=== PATIENT | female | born 1990 | race African-American/Black ===

== ENCOUNTER 2016-08-04 10:30 | Inpatient (IN) ==
[~2016-08-04 10:30] MED LIST: AMPICILLIN INJ 2,000 MG in SODIUM CHLORIDE 0.9% 100 ML IV ONE
[2016-08-04] MEDS ORDERED: AMPICILLIN 2,000 MG VIAL ONE (10:35)
[2016-08-04] MEDS ORDERED: SODIUM CHLORIDE 0.9% 100 ML IV ONE (10:36)
[2016-08-04] MEDS ORDERED: ONDANSETRON 4 MG/2 ML VIAL IV PRN (10:40)
[2016-08-04] MEDS: LACTATED RINGERS 1,000 ML IV SCH ×2 (10:58→13:42)
[2016-08-04 11:00] LABS: Basophils % 0.1 % (0.0-0.8); Eosinophils # 0.1 10*3/uL (0.0-0.87); Eosinophils % 0.6 % (0.00-10.9); Hematocrit 38.8 VOL% (35.7-47.0); Hemoglobin 12.4 GM/DL (12.0-16.0); Immature Granulocytes % 0.3 %; Immature Granulocytes Absolute 0.02 #; Lymphocytes # 1.9 10*3/uL (1.4-4.0); Lymphocytes % 24.3 % (21.3-54.2); Mean Corpuscular Hemoglobin 27 PG (27-34); Mean Corpuscular Volume 84.3 FL (87-102); Mean Platelet Volume 11.8 FL (9.6-12.0); Monocytes # 0.5 10*3/uL (0.11-0.8); Monocytes % 5.6 % (1.7-12.7); Neutrophils # 5.5 10*3/uL (1.4-7.4); Neutrophils % 69.1 % (38.7-73.9); Platelet Count 221 T/CUMM (130-400); Red Cell Distribution Width 13.8 % (9.3-17.3)
[2016-08-04] MEDS ORDERED: OXYTOCIN/LR 20 UNIT/1,000 ML BAG IV SCH (11:00)
[2016-08-04] MEDS: AMPICILLIN INJ 1,000 MG in SODIUM CHLORIDE 0.9% 100 ML IV SCH ×2 (11:01→16:02)
[2016-08-04 11:10] LABS: PT Patient Result 10.1 SECS; Partial Thromboplastin Time 30.8 SECS (0-40)
[2016-08-04 11:29] LABS: Albumin 2.8 G/DL (3.4-5.0); Bilirubin,Total 0.4 MG/DL (0.2-1.0); Calcium 8.8 MG/DL (8.5-10.1); Osmolality,Calculated 277.3 MOS/KG (273-304); Potassium 3.9 MMOL/L (3.5-5.1); Total Protein 6.5 G/DL (6.4-8.3)
[2016-08-04] MEDS ORDERED: ePHEDrine 50 MG/ML AMP IV PRN (11:33)
[2016-08-04] MEDS ORDERED: diphenhydrAMINE 50 MG/1 ML VIAL IV PRN ×2 (11:33)
[2016-08-04] MEDS ORDERED: hydrOXYzine HCL 25 MG/1 ML VIAL IM PRN (11:33)
[2016-08-04] MEDS ORDERED: PROMETHAZINE 25 MG/1 ML VIAL IM ONE (11:33)
[2016-08-04] MEDS ORDERED: fentaNYL 2 MCG/ROPIV 0.2% EPID 150 ML EPIDURAL SCH (11:33)
[2016-08-04] MEDS ORDERED: LACTATED RINGERS 1,000 ML IV ONE (11:35)
--- NOTE | 2016-08-04 11:35 | OB/GYN History & Physical ---
History of Present Illness Chief complaint: rupture of membranes History of present illness: Ms. Kiran is a 26 year old female 002 at 31 weeks and 5 days who set her water broke at 730 this morning. She is also having contractions. She has no medical issues and she has delivered 2 vaginal deliveries full-term in the past. She has no medical issues. 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 - Constitutional Vitals: Vital Signs Temp Pulse Resp BP Pulse Ox 08/04/16 10:45 161/76 08/04/16 10:30 99.4 F 105 H 20 157/100 97 General appearance: mild distress, over weight - Antepartum / Post Antepartum Exam Cervix -Dilatation: 6-7 Effacement: 90 Station: -1 Rupture: ruptured Presentation: vertex Heart Rate: cat 1 - Respiratory Respiratory exam: Absent: accessory muscle use - Cardiovascular Cardiovascular exam: Present: regular rate and rhythm - Extremities Exam Extremities exam: Absent: calf tenderness - Neurological Exam Neurological exam: Present: alert, oriented X3 - Psychiatric Psychiatric exam: Present: normal affect - Skin Skin exam: Present: normal color, warm Assessment and Plan (1) premature rupture of membranes in third trimester Status: Acute Assessment and plan: IUP at 31 weeks 5 days wiht PPROM adn in labor. ampicillin for GBS. NICU notified. for inevitable delivery Current Visit: Yes Results - Labs CBC & BMP: 08/04/16 10:54 08/04/16 10:54
[2016-08-04] MEDS ORDERED: CITRIC ACID/SODIUM CITRATE 30 ML UDCUP PO ONE (11:47)
[2016-08-04 12:20] LABS: HIV Antigen/Antibody Result Nonreactive (Nonreactive); Hepatitis A Ab IgM Result Negative (Negative); Hepatitis B Core IgM Quant 0.16 Index; Hepatitis B Core IgM Result Negative (Negative); Hepatitis B Surface Ag Quant 0.14 Index; Hepatitis B Surface Ag Result Negative (Negative); Hepatitis C Virus Ab Result Negative (Negative)
--- NOTE | 2016-08-04 14:17 | Operative Note ---
Date of procedure: 08/04/16 Pre-op diagnosis: PPROM, labor at 31 week 5 days Post-op diagnosis: same Procedure: The patient progressed or completely dilated after the epidural and delivered a viable female over intact perineum. The Apgars and weight were pending at the time of this dictation the was sent to the NICU shortly after delivery. The placenta delivered spontaneously without any complications. Sponge lap management counts were correct 3. Anesthesia: epidural Surgeon / Physician: Chel Jason Estimated blood loss: other (100) Specimens: other (placenta) Condition: stable Results - Labs CBC & BMP: 08/04/16 10:54 08/04/16 10:54 Discharge Plan - Discharge Medications No Action Pnv No.95/Ferrous Fum/Folic AC [ Tablet] 1 each PO DAILY Ondansetron Tab [Zofran Tab] 4 mg PO DAILY - Follow Up or Referral - Forms/Instructions
[2016-08-04] MEDS ORDERED: LANOLIN 50% CREAM 0.3 OZ TUBE TOP PRN (16:01)
[2016-08-04] MEDS ORDERED: WITCH HAZEL PADS 100/JAR TOP PRN (16:01)
[2016-08-04] MEDS ORDERED: RHO(D) IMMUNE GLOBULIN 300 MCG SYRINGE IM ONE (16:01)
[2016-08-04] MEDS ORDERED: BENZOCAINE 20%/MENTHOL 0.5% SPRAY 56 GM CAN TOP PRN (16:01)
[2016-08-04] MEDS ORDERED: MEASLES/MUMPS/RUBELLA VACCINE 0.5 ML VIAL SUBCUT ONE (16:01)
[2016-08-04] MEDS ORDERED: oxyCODONE/ACETAMINOPHEN 5-325 MG TABLET PO PRN (16:01)
[2016-08-04] MEDS ORDERED: OXYTOCIN/LR 20 UNIT/1,000 ML BAG IV ONE (16:01)
[2016-08-04] MEDS ORDERED: HYDROCORTISONE 2.5% RECTAL CREAM 30 GM TUBE TOP PRN (16:01)
[2016-08-04] MEDS ORDERED: ACETAMINOPHEN 325 MG TABLET PO PRN (16:01)
[2016-08-04] MEDS ORDERED: DIPH/TET/ACEL PERT BOOSTER VACCINE 0.5 ML VIAL IM ONE (16:01)
[2016-08-04] MEDS ORDERED: BISACODYL 10 MG SUPP RECTAL PRN (16:01)
[2016-08-04 16:16] LABS: Barbiturates Screen,Urine Negative (Negative); Benzodiazepines Screen,Urine Negative (Negative); Cannabinoid Screen,Urine Negative (Negative); Opiate Screen,Urine Negative (Negative); Phencyclidine Screen,Urine Negative (Negative)
[2016-08-04] MEDS: IBUPROFEN 800 MG TABLET PO PRN (22:05)
[2016-08-04] MEDS: DOCUSATE SODIUM 100 MG CAPSULE PO SCH (22:41)
[2016-08-05] MEDS: oxyCODONE/ACETAMINOPHEN 5-325 MG TABLET PO PRN ×3 (00:09→22:55)
[2016-08-05 06:20] LABS: Basophils % 0.3 % (0.0-0.8); Eosinophils # 0.1 10*3/uL (0.0-0.87); Eosinophils % 1.1 % (0.00-10.9); Hematocrit 34.7 VOL% (35.7-47.0); Hemoglobin 11.1 GM/DL (12.0-16.0); Immature Granulocytes % 0.4 %; Immature Granulocytes Absolute 0.04 #; Lymphocytes # 3.3 10*3/uL (1.4-4.0); Lymphocytes % 33.3 % (21.3-54.2); Mean Corpuscular Hemoglobin 27 PG (27-34); Mean Corpuscular Volume 84.8 FL (87-102); Mean Platelet Volume 11.5 FL (9.6-12.0); Monocytes # 0.6 10*3/uL (0.11-0.8); Monocytes % 6.2 % (1.7-12.7); Neutrophils # 5.7 10*3/uL (1.4-7.4); Neutrophils % 58.7 % (38.7-73.9); Platelet Count 210 T/CUMM (130-400); Red Blood Count 4.09 MC/CUMM (3.8-5.5); Red Cell Distribution Width 14.2 % (9.3-17.3); White Blood Count 9.8 T/CUMM (4-12)
--- NOTE | 2016-08-05 08:56 | OB/GYN Progress Note ---
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 - Constitutional Vitals: Vital Signs Temp Pulse Pulse Resp BP Pulse Ox 08/05/16 07:37 96.5 F L 71 18 127/80 99 08/05/16 04:00 96.8 F L 61 18 129/69 100 08/05/16 00:09 97.2 F L 67 18 124/65 96 08/04/16 19:20 98.1 F 84 20 129/72 98 08/04/16 18:00 97.0 F L 82 20 122/78 98 08/04/16 17:00 71 20 143/96 98 08/04/16 16:00 97.5 F L 81 20 150/85 98 08/04/16 12:00 87 20 148/67 100 08/04/16 10:45 161/76 08/04/16 10:30 99.4 F 105 H 20 157/100 97 General appearance: over weight - Head Head exam: Present: normal inspection, normocephalic - Eye Eye exam: Present: EOMI - Respiratory Respiratory exam: Present: clear to auscultation bilaterally - Cardiovascular Cardiovascular exam: Present: regular rate and rhythm - GI/Abdominal GI/Abdominal exam: Present: soft (fundus firm, nontender) - Extremities Exam Extremities exam: Present: normal inspection - Neurological Exam Neurological exam: Present: alert, oriented X3 - Psychiatric Psychiatric exam: Present: normal affect, normal mood - Skin Skin exam: Present: normal color, warm Results - Labs CBC & BMP: 08/05/16 06:03 08/04/16 10:54 Lab Results: I have reviewed the past 24 hour labs
[2016-08-05] MEDS: DOCUSATE SODIUM 100 MG CAPSULE PO SCH ×2 (09:54→22:56)
--- NOTE | 2016-08-05 10:38 | Anesthesia Post-Op ---
Anesthesia Post OP - Post Ansesthetic Evaluation Patient seen in post op: Yes Resp: within normal limits CV: within normal limits Mental: within normal limits Temp: within normal limits Ayvs-Kx-Fymrwpsso: within normal limits Nausea and Vomiting: within normal limits Pain: within normal limits
[2016-08-05] MEDS: IBUPROFEN 800 MG TABLET PO PRN ×2 (12:45→22:55)
[2016-08-06 07:10] VITALS: BP 132/82
--- NOTE | 2016-08-06 11:53 | Pathology Report from [facility] ---
ACCESSION # : [id number] PATIENT NAME : Shwetha Malave ORDERING DR : Chel Almanzar MD CLINICAL HX: PROM perterm labor POST-OP DX: Same SPECIMEN INFO: Placenta GROSS DESCRIPTION: Received fresh labeled with the patient's name and consists of a 288 gram placenta which measures 16.9 x 17.3 x 1.8 cm. membranes are pink-upton, translucent. The umbilical cord is pericentrally inserted, contains three vessels and measures 26.2 cm. The surface is blue-pink. The maternal surface is beefy red with moderate to markedly disrupted cotyledons. No gross abnormalities on sectioning. Sections submitted: A membranes and cord, B and maternal surfaces. DIAGNOSIS FOR SHWETHA MALAVE: PLACENTA, MEMBRANES, UMBILICAL CORD: Focal placental infarction with dystrophic calcification. Tri-vessel umbilical cord, pericentrally inserted. Membranes with focal acute and chronic inflammation and attached blood. SERVICE DATE: 08/05/2016 REPORT DATE: 08/06/2016 PATHOLOGIST: Rayray Way
--- NOTE | 2016-09-11 12:57 | Discharge Summary ---
DATE OF ADMISSION: 08/04/2016 DATE OF DISCHARGE: 08/06/2016 ADMISSION DIAGNOSIS: A 31-5/7TH WEEKS' GESTATION WITH PREMATURE RUPTURE OF MEMBRANES. DISCHARGE DIAGNOSIS: SAME. PROCEDURE: SPONTANEOUS VAGINAL DELIVERY BY DR. MEYERS ON-CALL. HOSPITAL COURSE: The patient was admitted on 08/04/2016 with spontaneous rupture of membranes that morning and in active labor. She proceeded to deliver without complications. Her course is unremarkable to this point. She has had two prior full-term vaginal deliveries. On hospital course , the patient was admitted. She was delivered without complications. Her course was unremarkable that she did very well. Her vital signs remained stable. She remained afebrile throughout hospital course. She was ready to dismiss on day #2. She was dismissed in stable condition with instructions to continue with pelvic rest for six weeks . She is to follow up in my office in six weeks and p.r.n. She is to notify us for any problems including sustained temperature elevation or increased vaginal bleeding or signs of infection. She voiced understanding of the instructions and was dismissed in stable condition. JESSICA
== END 2016-08-06 13:15 | disposition home or self-care (01) | DRG 775 ==
LOC: N.LD 10:30 → N.OB 16:27
PROVIDERS: ADMIT Obstetrics & Gynecology; ATTEND Obstetrics & Gynecology